=== PATIENT | male | born 1950 | race Caucasian/White ===

== ENCOUNTER → 2018-07-31 | Outpatient (CLI) | payer MEDICARE, OTHER ==
[~2018-07-31] MED LIST: HYDACE10B PO; IBUP600 PO; LISI5 PO; LISINOPRIL PO
== END | disposition home or self-care (01) ==
LOC: PLD 10:20 → LAB SHORT 10:20
DX: D04.39 Carcinoma in situ of skin of other parts of face (principal)
CPT/HCPCS: 88305

== ENCOUNTER → 2018-09-09 | Outpatient (CLI) | payer MEDICARE, OTHER | END | disposition home or self-care (01) | LOC: LAB SHORT 14:21 → PLD 14:21 | DX: C44.320 Squamous cell carcinoma of skin of unspecified parts of face (principal); L57.8 Other skin changes due to chronic exposure to nonionizing radiation | CPT/HCPCS: 88305 ==

== ENCOUNTER → 2021-07-12 | Outpatient (CLI) | payer MEDICARE | END | disposition home or self-care (01) | LOC: LAB FUT 07-11 15:50 → EDSTATUS 07-11 15:50 → LAB SHORT 14:30 → LAB 14:30 | PROVIDERS: Internal Medicine | DX: R79.89 Other specified abnormal findings of blood chemistry (principal) | CPT/HCPCS: 81050 ==

== ENCOUNTER → 2022-11-11 | Outpatient (CLI) | payer MEDICARE, BC ==
[2022-11-11 14:48] LABS: BASOPHILS PERCENT AUTO 1 % (0-2); EOSINOPHILS ABSOLUTE AUTO 0.34 K/mm3 (0.00-0.68); EOSINOPHILS PERCENT AUTO 4 % (0-6); Hematocrit 52.6 % (37.0-53.0); Hemoglobin 17.8 g/dL (13.5-17.5); IMMATURE GRAN ABSOLUTE AUTO 0.03 K/mm3 (0.00-0.10); IMMATURE GRAN PERCENT AUTO 0 % (0-1); LYMPHOCYTES ABSOLUTE AUTO 1.44 K/mm3 (0.84-5.20); LYMPHOCYTES PERCENT AUTO 18 % (21-46); MONOCYTES ABSOLUTE AUTO 0.78 K/mm3 (0.16-1.47); MONOCYTES PERCENT AUTO 10 % (4-13); Mean Corpuscular HGB 30.7 pg (26.0-34.0); Mean Corpuscular HGB Conc 33.8 g/dL (31.5-36.5); Mean Corpuscular Volume 91 fL (80-100); Mean Platelet Volume 10.6 fL (9.1-12.4); NEUTROPHILS ABSOLUTE AUTO 5.23 K/mm3 (1.96-9.15); NEUTROPHILS PERCENT AUTO 66 % (41-73); Platelet Count 174 K/mm3 (150-400); RDW Coefficient Variation 15.6 % (11.7-14.2); RDW Standard Deviation 52.6 fL (35.1-46.3); White Blood Cell Count 7.92 K/mm3 (4.00-11.30)
== END | disposition home or self-care (01) ==
LOC: LAB 13:50 → LAB SHORT 13:50
PROVIDERS: Nurse Practitioner Acute Care
DX: M25.561 Pain in right knee (principal)
CPT/HCPCS: 85025; 85651; 86140

== ENCOUNTER 2023-04-09 14:48 | Day surgery (SDC) | payer MEDICARE, BC ==
[~2023-04-09] VITALS: Ht 188 cm; Wt 108.2 kg
[2023-04-09] MEDS ORDERED: ASPIR 8181 M1 PO (15:12)
[2023-04-09 16:36] VITALS: BP 132/92
== END 2023-04-09 16:53 | disposition home or self-care (01) ==
LOC: ORSCSDS 14:48
PROVIDERS: Ophthalmology
PROC: 08DK3ZZ Extraction of Left Lens, Percutaneous Approach (ICD-10-PCS; principal; 2023-04-09 16:00)
DX: H25.13 Age-related nuclear cataract, bilateral (principal); H52.223 Regular astigmatism, bilateral; I10 Essential (primary) hypertension; Z79.82 Long term (current) use of aspirin; Z79.899 Other long term (current) drug therapy
CPT/HCPCS: J2250; J3010; J3301; J7040; V2632

== ENCOUNTER 2023-06-06 10:08 | Day surgery (SDC) | payer MEDICARE, BC ==
[~2023-06-06] VITALS: Ht 188 cm; Wt 106.6 kg
[~2023-06-06 10:08] MED LIST changes: +ASPIR 8181 M1 PO
--- NOTE | 2023-06-06 10:31 | NUR ---
06/06/23 1031 Genevieve Ahn AT 1027 PLEDEEJAYET AT 1028
[2023-06-06 11:39] VITALS: BP 116/80
== END 2023-06-06 11:54 | disposition home or self-care (01) ==
LOC: ORSCSDS 10:08
PROVIDERS: Ophthalmology
PROC: 08RJ3JZ Replacement of Right Lens with Synthetic Substitute, Percutaneous Approach (ICD-10-PCS; principal; 2023-06-06 11:30)
DX: H25.11 Age-related nuclear cataract, right eye (principal); H52.201 Unspecified astigmatism, right eye; Z96.1 Presence of intraocular lens; I10 Essential (primary) hypertension; Z79.899 Other long term (current) drug therapy; Z79.82 Long term (current) use of aspirin
CPT/HCPCS: J2250; J3010; J3301; J7040; V2632